=== PATIENT | female | born 1975 | race Caucasian/White ===

== ENCOUNTER 2021-05-29 19:36 | Emergency (ER) | payer OTHER ==
[~2021-05-29] VITALS: Ht 160 cm; Wt 87.5 kg
[2021-05-29 19:41] VITALS: BP 150/105
--- NOTE | 2021-05-29 19:49 | NUR ---
TO CHAIR A WITH C/O DENTAL PAIN X 2 DAYS WITH TRACE FACIAL SWELLING NOTED
--- NOTE | 2021-05-29 20:04 | NUR ---
Dr. Cadet examining patient.
[2021-05-29] MEDS ORDERED: PENI500T20 PO (20:13)
[2021-05-29 20:25] VITALS: BP 150/105
--- NOTE | 2021-05-29 20:28 | NUR ---
Patient discharged with v/s stable. Written and verbal after care instructions given and explained. Patient alert, oriented and verbalized understanding of instructions. Ambulatory with steady gait. All questions addressed prior to discharge. ID band removed. Patient advised to follow up with PMD. Rx of PENICILLIN given. Patient educated on indication of medication including possible reaction and side effects. Opportunity to ask questions provided and answered.
== END 2021-05-29 20:28 | disposition home or self-care (01) ==
LOC: MED 19:36
DX: K08.89 Other specified disorders of teeth and supporting structures (principal)
CPT/HCPCS: 99283

== ENCOUNTER 2021-07-24 03:06 | Emergency (ER) | payer OTHER ==
[~2021-07-24] VITALS: Ht 162.6 cm; Wt 85.7 kg
[~2021-07-24 03:06] MED LIST: PENI500T20 PO
[2021-07-24 03:08] VITALS: BP 116/86
--- NOTE | 2021-07-24 03:08 | NUR ---
to bed ambulatory
--- NOTE | 2021-07-24 03:13 | NUR ---
COVERING PRIMARY RN FOR LUNCH RELIEF. SEE COMPLETE ASSESSMENT FOR ADDITIONAL INFORMATION.
[2021-07-24] MEDS ORDERED: ONDANSETRON 4 MG ODT PO ONE (03:25)
[2021-07-24] MEDS ORDERED: NACL 0.9% 1,000 ML IV ONE (03:35)
--- NOTE | 2021-07-24 03:48 | NUR ---
LABS AT BEDSIDE
[2021-07-24 03:56] LABS: BASOPHILS # (AUTO) 0.1 K/uL (0.00-0.22); BASOPHILS % (AUTO) 0.7 % (0.0-2.0); EOSINOPHILS # (AUTO) 0.1 K/uL (0-0.4); EOSINOPHILS % (AUTO) 0.5 % (0.0-4.0); HEMATOCRIT 40.5 % (36-48); LYMPHOCYTES % (AUTO) 14.8 % (20.5-51.1); MEAN CORPUSCULAR HEMOGLOBIN 32 pg (27-31); MEAN CORPUSCULAR HGB CONC 35 g/dL (33-37); MEAN CORPUSCULAR VOLUME 91.8 fL (80-94); MONOCYTES # (AUTO) 1.2 K/uL (0.8-1.0); MONOCYTES % (AUTO) 8.8 % (1.7-9.3); NEUTROPHILS # (AUTO) 10.3 K/uL (1.8-7.7); NEUTROPHILS % (AUTO) 75.2 % (42.2-75.2); PLATELET COUNT (AUTO) 344 K/uL (140-450); RED BLOOD CELL COUNT(AUTO) 4.41 MIL/uL (4.20-5.40); RED CELL DISTRIBUTION WIDTH 12.9 % (11.6-13.7); WHITE BLOOD COUNT (AUTO) 13.7 K/uL (4.8-10.8)
[2021-07-24 04:22] LABS: ALBUMIN 3.8 g/dL (3.4-5.0); ANION GAP 14.6 (8-16); CREATININE 1.1 mg/dL (0.6-1.3); POTASSIUM 3.6 mmol/L (3.5-5.1); TOTAL BILIRUBIN 1.2 mg/dL (0.0-1.0)
--- NOTE | 2021-07-24 04:30 | NUR ---
COLLECTED FOR COVID/ANDREEA AND FLU, WALKED TO LABS
--- NOTE | 2021-07-24 04:50 | NUR ---
46 Y/O FEMALE BIB [facility] FOR ABD PAIN X4 HOURS. PATIENT PRESENTS TO ED WITH NON RADIATING, 10/10, SHARP PAIN THAT COMES/GOES. DENIES DIARRHEA; SKIN IS PINK/WARM/DRY; AAOX4 WITH EVEN AND STEADY GAIT; LUNGS CLEAR BL; HR EVEN AND REGULAR; PT DENIES ANY FEVER, CP, SOB, OR COUGH AT THIS TIME; PATIENT STATES PAIN OF 10/10 AT THIS TIME; VSS; PATIENT POSITIONED FOR COMFORT; HOB ELEVATED; BEDRAILS UP X1; BED DOWN. ER MD MADE AWARE OF PT STATUS. HX: OR AND OVARIAN TUMOR REMOVAL NKA DENIES RX MEDS
[2021-07-24] MEDS ORDERED: ONDA4TAB PO (05:23)
--- NOTE | 2021-07-24 05:32 | NUR ---
ER MD AT BEDSIDE DISCUSSING PT RESULTS
[2021-07-24 06:10] VITALS: BP 116/86
--- NOTE | 2021-07-24 06:11 | NUR ---
Patient discharged with v/s stable. Written and verbal after care instructions given and explained. Patient alert, oriented and verbalized understanding of instructions. Ambulatory with steady gait. All questions addressed prior to discharge. ID band removed. Patient advised to follow up with PMD. Rx of ONDANSETRON given. Patient educated on indication of medication including possible reaction and side effects. Opportunity to ask questions provided and answered. VSS, A/OX4, STEADY GAIT, UNLABORED BREATHING, CLAM DEMEANOR
--- NOTE | 2021-07-30 11:55 | NUR ---
LATE ENTRY- IV FLUIDS DISCONTINUED AT 0611.
== END 2021-07-24 06:11 | disposition home or self-care (01) ==
LOC: MED 03:06
DX: R11.2 Nausea with vomiting, unspecified (principal); Z20.822 Contact with and (suspected) exposure to COVID-19; R10.9 Unspecified abdominal pain; Z90.710 Acquired absence of both cervix and uterus; Z79.899 Other long term (current) drug therapy
CPT/HCPCS: 36415; 80053; 83690; 85025; 87426; 87804; 96360; 99283; J7030; Q0162

== ENCOUNTER 2021-11-18 22:30 | Emergency (ER) | payer OTHER ==
[~2021-11-18] VITALS: Ht 160 cm; Wt 86.2 kg
[~2021-11-18 22:30] MED LIST changes: +ONDA4TAB PO
[2021-11-18 23:16] VITALS: BP 144/106
[2021-11-19] MEDS ORDERED: KETOROLAC 30 MG/ML VIAL IM ONE (00:15)
--- NOTE | 2021-11-19 00:28 | NUR ---
Dr. Gray examining patient.
[2021-11-19] MEDS ORDERED: HYDROcodone/APAP 5/325 MG 1 TAB TAB PO ONE (00:35)
[2021-11-19] MEDS ORDERED: IBUPROFEN 400 MG TAB PO ONE (00:35)
--- NOTE | 2021-11-19 00:57 | NUR ---
X-Ray at bedside.
[2021-11-19] MEDS ORDERED: NAPR-1704 PO (01:31)
[2021-11-19] MEDS ORDERED: ACET-8386 PO (01:31)
[2021-11-19 01:35] VITALS: BP 132/69
--- NOTE | 2021-11-19 01:40 | NUR ---
d/c with VSS. d/c education given. opportunity to ask questions given and answered. rx of naprosyn and norco given.
== END 2021-11-19 01:40 | disposition home or self-care (01) ==
LOC: MED 22:30
DX: S93.401A Sprain of unspecified ligament of right ankle, initial encounter (principal); F17.200 Nicotine dependence, unspecified, uncomplicated; Z98.890 Other specified postprocedural states; Z98.51 Tubal ligation status; Z79.1 Long term (current) use of non-steroidal anti-inflammatories (NSAID); Z79.891 Long term (current) use of opiate analgesic; Z79.899 Other long term (current) drug therapy; Z79.2 Long term (current) use of antibiotics; W18.42XA Slipping, tripping and stumbling without falling due to stepping into hole or opening, initial encounter; Y92.89 Other specified places as the place of occurrence of the external cause; Y93.89 Activity, other specified; Y99.8 Other external cause status
CPT/HCPCS: 29515; 73610; 99283